=== PATIENT | male | born 1995 | race Caucasian/White ===

== ENCOUNTER 2016-07-06 15:35 | Emergency (ER) | payer OTHER ==
[~2016-07-06] VITALS: Ht 190.5 cm; Wt 76.4 kg
[2016-07-06 15:36] VITALS: BP 117/88; PULSE 104; RESP 16; O2SAT 100
[2016-07-06 16:11] LABS: BASOPHILS % (AUTO) 1.1 % (0-3); EOSINOPHILS % (AUTO) 2.1 % (0-5); MONOCYTES % (AUTO) 10.6 % (4-12); Mean Corpuscular Hemoglobin 30.2 pg (27.0-35.0); Mean Corpuscular Volume 88.8 fL (81-100); Platelet Count 329 bil/L (150-400)
--- NOTE | 2016-07-06 16:11 | ED.REPORT ---
HPI-Chest Pain Under 40 Date of Service Jul 06, 2016 ED Provider: Michael Mcneil MD Patient is a 20 year old male with a history of PSVT who presents to the ED complaining of palpitations onset 4 hours ago. Associated symptoms include lightheadedness and chest ache. He has had similar symptoms quite often and has seen a charge master coordinator for it. He denies LOC, nausea, diaphoresis, abdominal pain, or any other symptoms. He spontaneously converted in the ED. He drinks about 2 cups of coffee a day. Nursing Notes Stated Complaint: HEART PALPITATIONS Chief Complaint: Dysrhythmia/Cardiac Nursing Notes Reviewed: Yes Allergies: Uncoded Allergies: BEES (Allergy, Unknown, 03/13/15) No Active Prescriptions or Reported Meds General Time Seen by MD: 16:09 Chief Complaint Other (Palpitations ) Hx Obtained From: Patient Arrived By: Walk-in Sudden in Onset?: Yes Similar Sx Previous: Yes Risk Factors )( CAD Risk Stratification No Amphetamine, No Cocaine, No Diabetes mellitus, No Hyperlipidemia, No Hypertension Risk factors reviewed Past Medical History Past Medical History Notes: PCP Zoila Villatoro Past Medical History Palpations with SVT Past Surgical History denies Smoking History Never Smoker Social History Alcohol Use: "Social" Drug Use: Denies drug use Other Social History: Local resident Occupation [employer] Status Independent Review of Systems Cardiovascular: Reports: Chest pain, Palpitations GI: Denies: Abdominal pain, Nausea Skin: Denies Diaphoresis Neurologic: Reports: Lightheaded, Denies: Change LOC Complete sys rev & neg: except as marked. Physical Exam Initial Vital Signs Vital Signs (First) Date Time Temp Pulse Resp B/P Pulse Ox O2 Delivery O2 Flow Rate FiO2 07/06/16 15:36 37.0 104 16 117/88 100 Room Air Initial VS: Reviewed Head / Eyes: Atraumatic, Normocephalic Neck: Full range of motion Abdomen / GI: Soft, Non-tender Skin: Warm, Dry Neurologic: Alert, Oriented, Nonfocal Psychiatric: Mood/affect normal, Behavior normal, Normal thought content General/Constitutional: Awake, Alert, Well appearing, Well developed Respiratory / Chest: Breath sounds NL, Breath sounds = bilat, No respiratory distress Cardiovascular: Heart rate NL, Regular rhythm, Heart sounds NL Interpretation & Diagnostics Lab Results Interpretation Result Diagram: 07/06/16 1603 07/06/16 1603 Test 07/06/16 16:03 White Blood Count 8.1th/mm3 (3.8-10.1) Red Blood Count 5.36mil/mm3 (4.40-5.80) Hemoglobin 16.2g/dL (13.8-17.2) Hematocrit 47.6% (41.0-50.0) Mean Corpuscular Volume 88.8fL (81-100) Mean Corpuscular Hemoglobin 30.2pg (27.0-35.0) Mean Corpuscular Hemoglobin Concent 34.0% (32.0-37.0) Red Cell Distribution Width 12.8% (12.3-15.4) Platelet Count 329bil/L (150-400) Neutrophils (%) (Auto) 63.0% (40-74) Lymphocytes (%) (Auto) 23.1% (14-46) Monocytes (%) (Auto) 10.6% (4-12) Eosinophils (%) (Auto) 2.1% (0-5) Basophils (%) (Auto) 1.1% (0-3) Sodium Level 139mEq/L (134-144) Potassium Level 4.2mEq/L (3.5-5.2) Chloride Level 100mEq/L (97-108) Carbon Dioxide Level 24mmol/L (18-29) Blood Urea Nitrogen 14mg/dL (6-20) Creatinine 0.78mg/dL (0.76-1.27) Estimat Glomerular Filtration Rate 135mL/min (>59) Glucose Level 96mg/dL (60-99) Calcium Level 9.6mg/dL (8.5-10.1) Magnesium Level 2.3mg/dL (1.6-2.6) Total Bilirubin 0.4mg/dL (0.0-1.2) Aspartate Amino Transf (AST/SGOT) 22U/L (0-50) Alanine Aminotransferase (ALT/SGPT) 17U/L (0-44) Alkaline Phosphatase 81U/L (25-150) Troponin T < 0.010ug/L (0.0-0.011) Total Protein 7.8g/dL (6.4-8.4) Albumin 4.6g/dL (3.4-5.0) ECG Interpretation ECG Interpretation: sinus rate 91 ST elevation Time: 16:07 Interpreted by: ED physician Re-Eval/Medical Decision Re-Evaluation/Progress : Time of Eval: 16:35 Patient Status: Condition resolved Re-Evaluation/Progress Note: Discussed plan for discharge. Patient understands and agrees with plan. All questions addressed at this time. Counseled Regarding: Diagnosis, Lab results, Need for follow-up, When/why to return to ED Discharge & Departure Primary Impression: Supraventricular tachycardia Disposition: Home Discharge Condition All VS Reviewed: Yes Condition: Improved Patient Instructions: Supraventricular Tachycardia (ED) Additional Instructions: Follow-up with Dr. Chester is soon as your schedule allows. If your symptoms recur , return to the emergency department if you cannot get it to go away on its own after a few hours especially if you have chest pain or shortness of breath. Referrals: Zoila Villatoro MD (PCP) Scribe Attestation Portions of this note were transcribed by Roxana Reno. I, Dr. Mcneil personally performed the history, physical exam and medical decision-making; I reviewed and confirmed the accuracy of the information in the transcribed note. Signed by: Roxana Reno 07/06/16, 4127 copies to: Zoila Villatoro MD, Kirk H MD Jul 06, 2016 16:11 ROXANA RENO Jul 06, 2016 16:21
[2016-07-06 16:33] LABS: Magnesium 2.3 mg/dL (1.6-2.6)
[2016-07-06 16:36] LABS: TROPONIN T < 0.010 ug/L (0.0-0.011)
[2016-07-06 16:45] VITALS: BP 133/75; PULSE 89; RESP 16; O2SAT 100
== END 2016-07-06 16:45 | disposition home or self-care (01) ==
LOC: SED 15:35
DX: I47.1 Supraventricular tachycardia (principal)